=== PATIENT | male | born 1970 | race Two or more races ===

== ENCOUNTER 2019-08-22 21:45 | Emergency (ER) | payer MEDICAID, OTHER ==
[~2019-08-22] VITALS: Ht 172.7 cm; Wt 106.6 kg
[2019-08-22] MEDS ORDERED: SODIUM CHLORIDE 0.9% 1,000 ML IV ONE (22:15)
[2019-08-22] MEDS ORDERED: LORazepam 2MG/ML-1ML VIAL IV ONE (22:15)
[2019-08-22 22:40] LABS: Hematocrit 48.5 % (41.0-53.0); Hemoglobin 16.8 g/dL (13.5-17.5); Mean Corpuscular Hemoglobin 30.4 pg (28.0-32.0); Mean Corpuscular Hgb Conc. 34.6 g/dL (32.0-36.0); Mean Corpuscular Volume 87.6 fL (80.0-100.0); Platelet Count (auto) 304 10^3/uL (140-450); Red Blood Cells 5.53 10^6/uL (4.5-5.90); Red Cell Distribution Width 13.8 % (11.8-14.3); White Blood Cell 9.8 10^3/uL (4.4-10.8)
[2019-08-22] MEDS ORDERED: THIAMINE INJ 100 MG in SODIUM CHLORIDE 0.9% 1,000 ML IV ONE (22:45)
[2019-08-22 22:49] LABS: Band Neutrophils % (manual) 0; Basophils % (manual) 0 (0.0-2.0); Blast Cells 0; Metamyelocytes % 0; Myelocytes % 0; Promyelocytes % 0; Reactive Lymphocytes 0
[2019-08-22 22:50] LABS: Albumin 3.7 g/dL (3.4-5.0); Anion Gap 6 (5-15); Blood Urea Nitrogen 12 mg/dL (7-18); Calcium 8.1 mg/dL (8.5-10.1); Carbon Dioxide 25 mmol/L (21-32); Chloride 113 mmol/L (98-107); Glucose 123 mg/dL (74-106); Potassium 3.6 mmol/L (3.5-5.1); Sodium 144 mmol/L (136-145)
[2019-08-22 22:56] LABS: Alanine Aminotransferase 67 U/L (16-61); Alkaline Phosphatase 96 U/L (45-117); Aspartate Aminotransferase 25 U/L (15-37); BUN/Creatinine Ratio 12.9; Bilirubin, Total 0.2 mg/dL (0.2-1.0); GFR African American 112 mL/min; GFR Non-African American 93 mL/min; Total Protein 7.8 g/dL (6.4-8.2)
[2019-08-22] MEDS ORDERED: ONDANSETRON HCL 4 MG/2 ML VIAL IV ONE (23:00)
[2019-08-22 23:11] LABS: Eosinophils % (manual) 4 (0-7); Lymphocytes % (manual) 59 (10.0-50.0); Monocytes % (manual) 12 (0-12)
[2019-08-23] VITALS: BP 115/64
[2019-08-23] MEDS ORDERED: THIAMINE 100mg/ml INJ (200mg/2ml VIAL) ONE (00:54)
[2019-08-23] MEDS ORDERED: SODIUM CHLORIDE 0.9% 1,000 ML IV ONE (01:00)
[2019-08-23 01:07] LABS: Urine WBC None Seen /hpf (0 - 3)
[2019-08-23 01:29] LABS: Amphetamine Screen, Urine NEGATIVE (NEGATIVE); Barbiturate Scree,Urine NEGATIVE (NEGATIVE); Benzodiazephine Screen, Urine NEGATIVE (NEGATIVE); Cannabinoid Screen, Urine NEGATIVE (NEGATIVE); Cocaine Screen, Urine NEGATIVE (NEGATIVE); Opiate Scree,Urine NEGATIVE (NEGATIVE); Phencyclidine Screen, Urine NEGATIVE (NEGATIVE)
[2019-08-23 01:37] LABS: Urine Bacteria NONE SEEN /hpf (None Seen); Urine Blood Negative /uL (Negative); Urine Mucus FEW (None Seen); Urine Specific Gravity 1.011 (1.001-1.035)
== END 2019-08-23 01:47 | disposition home or self-care (01) ==
LOC: ER 21:45 → EDBD 21:45 → ER 08-23 01:47
DX: F10.129 Alcohol abuse with intoxication, unspecified (principal); K74.69 Other cirrhosis of liver; R11.10 Vomiting, unspecified; R41.0 Disorientation, unspecified; E66.9 Obesity, unspecified; Y90.8 Blood alcohol level of 240 mg/100 ml or more; Z68.35 Body mass index [BMI] 35.0-35.9, adult
CPT/HCPCS: 36415; 71045; 80053; 80307; 80320; 81001; 84484; 85007; 85027; 93005; 96361; 96365; 96375; 99284; J2060; J2405; J3411; J7030